=== PATIENT | female | born 1945 | race Caucasian/White ===

== ENCOUNTER 2022-06-11 07:49 | Day surgery (SDC) | payer MEDICARE, BC ==
[2022-06-11] MEDS ORDERED: Sodium Chloride 0.9% 10 ML Syringe FLUSH ONE (08:30)
== END 2022-06-11 09:39 | disposition home or self-care (01) ==
LOC: JP.SDS 07:49
PROVIDERS: ATTEND Ophthalmology
DX: H25.11 Age-related nuclear cataract, right eye (principal); I10 Essential (primary) hypertension; E78.5 Hyperlipidemia, unspecified; K21.9 Gastro-esophageal reflux disease without esophagitis
CPT/HCPCS: 66984; J3490; V2632

== ENCOUNTER 2022-06-25 06:58 | Day surgery (SDC) | payer MEDICARE, BC ==
[2022-06-25] MEDS ORDERED: Sodium Chloride 0.9% 10 ML Syringe FLUSH PRN (07:30)
== END 2022-06-25 08:40 | disposition home or self-care (01) ==
LOC: JP.SDS 06:58
PROVIDERS: ATTEND Ophthalmology
DX: H25.12 Age-related nuclear cataract, left eye (principal)
CPT/HCPCS: V2632